=== PATIENT | male | born 1985 | race African-American/Black ===

== ENCOUNTER 2021-08-01 15:34 | Emergency (ER) | payer MEDICAID ==
[~2021-08-01] VITALS: Ht 180.3 cm; Wt 77.0 kg
[2021-08-01 15:38] VITALS: BP 145/91
== END 2021-08-01 18:58 | disposition left against medical advice (07) ==
LOC: ER 15:34
DX: Z53.21 Procedure and treatment not carried out due to patient leaving prior to being seen by health care provider (principal)
CPT/HCPCS: 93005